=== PATIENT | female | born 1990 | race Caucasian/White ===

== ENCOUNTER 2022-02-20 12:18 | Emergency (ER) | payer OTHER, SELFPAY ==
[2022-02-20 12:19] VITALS: BP 155/86; PULSE 83; RESP 16; TEMP 36.7; O2SAT 97; BMI 49.4
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
[2022-02-20] MEDS: Ibuprofen 400 MG Tablet 800 MG PO (13:34)
[2022-02-20] MEDS: cycloBENZAPRine HCl 10 MG Tablet PO (13:35)
[2022-02-20 13:39] VITALS: BP 136/76; PULSE 82; RESP 16
== END 2022-02-20 13:40 | disposition home or self-care (01) ==
PROVIDERS: Emergency Provider Emergency Medicine; Visit Provider Emergency Medicine
DX: S09.90XA Unspecified injury of head, initial encounter (principal); F17.210 Nicotine dependence, cigarettes, uncomplicated; V89.2XXA Person injured in unspecified motor-vehicle accident, traffic, initial encounter; S16.1XXA Strain of muscle, fascia and tendon at neck level, initial encounter
CPT/HCPCS: 70450; 72125; 99283